=== PATIENT | male | born 1980 | race Caucasian/White ===

== ENCOUNTER 2021-06-27 07:47 | Inpatient (IN) | payer OTHER ==
[2021-06-23 13:56] LABS: Albumin 4.1 g/dL (3.4-5.0); Bilirubin Total 0.7 mg/dL (0.2-1.0); Potassium 4.1 mmol/L (3.5-5.1); Protein, Total 8.2 g/dL (6.4-8.2); Thyroid Stimulating Hormone 3.01 uIU/mL (0.360-3.740)
--- NOTE | 2021-06-24 12:39 | EKG ---
Test Date: 2021-06-23 Test Time: 12:15:26 Emt/Paramedic: LAURA MEASUREMENT RESULTS: Intervals: Rate: 80 HI: 152 QRSD: 84 QT: 370 QTc: 426 [place]: P: 60 HI: 152 QRS: 84 T: 31 INTERPRETIVE STATEMENTS: Normal sinus rhythm Normal ECG No previous ECG available for comparison Electronically Signed On 06-24-21 12:37:41 CDT by Andrei León
[2021-06-27] MEDS ORDERED: Ringers Lactate 1,000 ML IV ONE ×3 (08:13→13:57)
[2021-06-27] MEDS ORDERED: ONDANSETRON 4 MG/2 ML VIAL ONE ×2 (09:59→13:44)
[2021-06-27] MEDS ORDERED: propofoL 200 MG/20 ML VIAL IV ONE (09:59)
[2021-06-27] MEDS ORDERED: MIDAZOLAM HCL 2 MG/2 ML INJ ONE (09:59)
[2021-06-27] MEDS ORDERED: FENTANYL CITR 100 MCG/2 ML ONE ×2 (09:59→10:34)
[2021-06-27] MEDS ORDERED: LIDOCAINE 2% MPF 5 ML VIAL ONE (09:59)
[2021-06-27] MEDS ORDERED: GLYCOPYRROLATE 0.2 MG/ML SYR ONE (10:01)
[2021-06-27] MEDS ORDERED: NEOSTIGMINE 1 MG/ML -5 ML ONE (10:02)
[2021-06-27] MEDS ORDERED: ROCURONIUM 50 MG/5 ML VIAL IV ONE (10:02)
[2021-06-27] MEDS ORDERED: dexAMETHasone 10 MG/ML VIAL ONE (10:02)
[2021-06-27] MEDS ORDERED: LIDOCAINE 1% W/EPI 1:100,000 MDV 20 ML VIAL ONE (10:09)
[2021-06-27] MEDS ORDERED: CEFAZOLIN/SWI 2gm 2 GM/20 ML SYR ONE (10:13)
[2021-06-27] MEDS ORDERED: KETOROLAC 30 MG/ML INJ ONE (12:49)
--- NOTE | 2021-06-27 12:51 | P.BOP ---
Preoperative diagnosis: goiter, dysphagia, hyperthyroidism Postoperative diagnosis: same Primary procedure: total thyroidectomy Shop Welder: ALLEN PAPPAS Estimated blood loss: 50ml Specimen: total thyroid, suture L superior Findings: large hypervascular goiter Anesthesia: General Complications: None Drain(s): CIPRIANO drain Fluids & blood products: crystalloid 950ml Transferred to: Recovery Room Condition: Good
[2021-06-27] MEDS: HYDROMORPHONE HCL 1 MG/ML INJ ONE ×2 (13:27→13:41)
[2021-06-27] MEDS ORDERED: PROMETHAZINE INJ 25 MG/ML AMP ONE (13:46)
[2021-06-27] MEDS ORDERED: ONDANSETRON 4 MG/2 ML VIAL IV PRN (15:51)
[2021-06-27 17:23] VITALS: BMI 30.4
--- NOTE | 2021-06-27 17:27 | OP ---
Surgeon: Yareli Hawkins MD Hse Manager: Ms. Maia Berrios. Preoperative Diagnoses: Dysphagia, goiter, hyperthyroidism. Postoperative Diagnoses: Dysphagia, goiter, hyperthyroidism. Procedure: Total thyroidectomy. Estimated Blood Loss: 50 mL. Specimens: Total thyroid with left superior pole marked with suture. Complications: None. Drain: 10-Citizen [place] CIPRIANO to the neck. Surgical Findings: Significantly enlarged thyroid/goiter with superior pole extending to the level of the upper border of the thyroid cartilage and wrapping posteriorly around the larynx. Indication For Procedure: Mr. Hoover presented with swallowing and throat concerns with symptoms worse with neck flexion. The evaluation included thyroid function studies and ultrasound of the thyroid, which demonstrated a goiter and hyperthyroidism. The patient was placed on methimazole in order to control his hyperthyroidism. His TSH was improving, but was not normalized and his dose of methimazole was increased from 5 mg 3 times a day up to 10 mg 3 times a day. He subsequently had thyroid function test indicating his TSH was normal and he was not exhibiting any tachycardia or other symptoms of hyperthyroidism. Decision was made to proceed with total thyroidectomy with the patient understanding the need to have lifelong levothyroxine after surgery. Description Of Procedure In Detail: The patient was brought to the operating room. He was placed under general anesthesia via oral endotracheal tube. A shoulder roll was placed. The neck was extended. With palpation, the patient was noted to have a significantly enlarged thyroid gland. The planned incision site was injected with 4 mL of 1% lidocaine with epinephrine. The skin was prepped with Betadine and draped in a sterile fashion. A low collar incision was made through the skin, subcutaneous tissues, and the platysma muscle was identified and divided. Subplatysmal flaps were developed superiorly and inferiorly to provide surgical exposure. The strap muscles were identified in the midline and divided using Bovie electrocautery, revealing a large goitrous thyroid. The strap muscles were retracted laterally, while dissection was carried out along the surface of the thyroid. The right inferior pole and lateral border were easily mobilized moving in an inferior to superior direction. The superior pole extended high up to the level of the superior border of the thyroid cartilage and during dissection was noted to wrap around the larynx posteriorly. Blunt dissection with a peanut sponge and LigaSure was used to divide soft tissue attachments and small vessels. A [place] clamp was used to grasp the superior pole and retracted inferiorly and medially to aid in dissection. Once the superior pole was freed up, dissection was carried out around the lateral and inferior aspect. There was a nodularity to the inferior pole with some irregular nodules extending on the deep inferior aspect of the thyroid and these were carefully dissected. Attention was taken in the midportion of the thyroid where some soft tissue suspicious for parathyroid gland was carefully peeled off the gland and left in situ allowing better elevation of the gland medially. In the area of Molina ligament near the attachment and insertion point rather of the recurrent laryngeal nerve, great care was taken and carefully isolating small vessels, ligating them with the ligature and carefully dissecting with the goal of reducing risk of damage to the recurrent laryngeal nerve. Once dissection was carried out in this manner, the decision was made to leave the thyroid with its tracheal attachments and perform dissection along the left side. The surgical bed was packed with several Ray-Elena in order to provide hemostasis along some bleeding areas of the thyroid gland itself. Similar dissection was carried out on the left gland again with the gland extending very high superiorly along the lateral aspect of the thyroid cartilage and diving more deeply along the posterior aspect. Care was taken during retraction and dissection to avoid damage to surrounding structures. Due to the size of the goiter and difficulty in accessing the deep aspect of the thyroid gland, decision was made to divide the gland at the isthmus in order to improve visualization along the tracheoesophageal groove. The soft tissue attachments in front of the cricoid cartilage were carefully dissected from the isthmus and the LigaSure was used to divide the isthmus along its length. The left thyroid was then elevated off the surface of the trachea and careful dissection was carried out down toward the tracheoesophageal groove. Taking careful note to avoid and watch for the recurrent laryngeal nerve. The final dissection in the area of Molina ligament was taken carefully to avoid damage or excessive stretching to the left recurrent laryngeal nerve until all final tissue attachments were divided and the left lobe was completely removed and marked with a suture at the superior most aspect for orientation. An area of bleeding near the insertion of the recurrent laryngeal nerve was noted and a Ray-Elena gauze packing was applied to this area in order to apply gentle pressure and aid in hemostasis while minimizing risk of collateral damage to the nerve structure. Attention was then turned back to the right lobe. The right lobe was elevated in a medial to lateral dissection along the anterior tracheal wall toward the esophageal groove. The area around Molina ligament and near the insertion point of the recurrent laryngeal nerve was again carefully and judiciously dissected to avoid damage to the nerve until final tissue attachments were removed and the gland was inspected. There were no gross parathyroid glands noted on the surface of the thyroid and the specimen was sent to Pathology for permanent section only. The surgical bed was then cleared of all visible packing and filled with sterile saline. After copious irrigation, the surgical bed was filled with saline and a Valsalva was performed. There was no evidence of damage to the trachea as evidenced by absence of air bubbles, and there was no significant bleeding noted. The surgical bed was then evacuated of saline and reinspected, but no evidence of active bleeding were noted. The surgical sponge count including Ray-Elena, lap pads, and peanut sponges were all confirmed correct. A 10-[place]izen [place] round drain was placed through the skin of the left neck and draped into the thyroid bed. A single Vicryl suture was placed across the strap muscles in order to reapproximate over the trachea. The platysmal layer was closed in a deep interrupted fashion using Vicryl sutures and the skin was closed in a subcuticular fashion using 4-0 Monocryl suture. Mastisol and Steri-Strips were applied to the incision. The CIPRIANO drain was attached to the bulb and a negative pressure applied. A small amount of blood was evacuated into the bowl, but there was no evidence of active hematoma or significant bleeding. The neck remained flat and the patient was returned to care of Anesthesia for awakening, extubation in the operating room, which proceeded without difficulty. Complications: None. Disposition: The patient will be held in day surgery until the results of his PTH return. If the PTH is normal, the patient will likely be returned home barring any other immediate postoperative concerns. If the PTH is low, careful discussion will be made with the patient regarding further management. PREETI/VICENTE Voice ID: [id number] Report ID: [id number] RYAN
--- NOTE | 2021-06-27 20:03 | PN ---
Interim History: The patient underwent total thyroidectomy with surgery concluding around 1 p.m. Hi s pain is controlled. He has not had any significant postoperative nausea or vomiting. He denies an y paresthesias around the mouth or in the fingertips. Physical Examination: The patient is in no acute distress. He is alert and oriented. His voice is hoarse and breathy. Hi s neck is soft and flat with expected degree of tenderness. His CIPRIANO drain contains a moderate amount of bloody fluid. His [place] sign is negative. Laboratory Data: Postoperative PTH less than 6, undetectable. Assessment: 1.Status post total thyroidectomy, stable. 2.Postsurgical hypothyroidism. Plan: The patient will be placed in observation overnight with repeat laboratory studies to include daily basic metabolic profile, calcium, magnesium, phosphorus, albumin, PTH. If the patient develops hypocalcemia, we will manage that as indicated. If his PTH is detectable and the patient is free fr om signs or symptoms of hypocalcemia in the morning, we will plan for discharge. If his PTH remains undetectable or if he is developing findings of hypocalcemia, he may require transition to inpatient status for further medical management. I discussed the laboratory findings and treatment recommendat ions including overnight stay, with the patient and his friend. The patient is agreeable to the plan of care. PREETI/VICENTE Voice ID: [id number] Report ID: [id number]
[2021-06-27] MEDS ORDERED: CEPACOL LOZENGES PO PRN (20:37)
[2021-06-27 21:36] LABS: Vitamin D 1,25-Dihydroxy Total 58 pg/mL (18-72); Vitamin D,1,25-OH2, D2 <8 pg/mL
[2021-06-27] MEDS: ACETAMINOPHEN 500 MG TAB PO PRN (22:06)
[2021-06-27] MEDS: CALCIUM CARBONATE CHEW 500MG TAB PO SCH (23:31)
[2021-06-28] MEDS: HYDROCODONE/APAP 7.5/325 MG TAB PO PRN ×2 (06:02→12:50)
[2021-06-28] MEDS: LEVOTHYROXINE SOD 0.075 MG TAB PO SCH (06:02)
[2021-06-28 06:15] LABS: Albumin 3.1 g/dL (3.4-5.0); Phosphorus 4.3 mg/dL (2.5-4.9); Potassium 3.8 mmol/L (3.5-5.1)
[2021-06-28] MEDS: CALCIUM CARBONATE CHEW 500MG TAB PO SCH ×3 (08:59→23:44)
--- NOTE | 2021-06-28 12:36 | PN ---
Interim History: This is a postop day 1 from a total thyroidectomy with patient placed under observation for postoperative hypoparathyroidism. The patient had some complaints of some subjective breathlessness and shortness of breath last night. He also complained of significant sore and scratchy throat. His EKG, chest x-ray were unremarkable. He was treated with Cepacol lozenges, which significantly improved his throat symptoms. He denies any symptoms of hypocalcemia this morning. He is tolerating liquids without difficulty. He continues to have significant breathy voice and the expected degree of pain. He received 1 dose of hydrocodone early this morning. Physical Examination: Vital signs are stable. The patient is in no acute distress. His voice is significant breathy and weak with decreased phonatory time. His neck is flat with expected degree of tenderness. His left neck CIPRIANO drain demonstrates a small amount of serosanguineous fluid. His Chvostek sign is negative. Drain output, 70 mL. Laboratory Studies: Calcium last night was decreased at 8.1. The patient was started on oral calcium with the first dose administered at approximately 10 p.m. This morning's laboratory studies indicate normal electrolyte, blood sugar, and kidney function. His albumin is low at 3.1. His calcium is mildly low at 8.4. His corrected calcium is 9.12. His PTH remains undetectable. Assessment: 1. Status post total thyroidectomy, currently on levothyroxine 150 for postsurgical hypothyroidism. Further management to be performed as an outpatient. We will continue his CIPRIANO drain today. If the patient is discharged later today, drain removal will be performed in the clinic on Wednesday morning. If the patient remains overnight, we will consider drain removal in the morning. 2. Hypoparathyroidism, persistent, asymptomatic. No calcitriol indicated at this time. 3. Mild hypocalcemia, currently on oral calcium 1 g every 8 hours. We will plan to recheck a calcium at 5 p.m. today. If his hypocalcemia is stable, we will plan to discharge the patient later today. If his hypocalcemia is worsening, we will keep the patient overnight, change him to inpatient status, and manage him as medically indicated from there. 4. General hospitalization issues: The patient is not currently on any medication for venous thromboembolism prophylaxis, but is encouraged to ambulate around the floor several times a day and advised regarding the risks and signs and symptoms of deep venous thrombosis. Due to recent surgery and risk of neck hematoma, I do not recommend or prescribe pharmacologic deep venous thrombosis prophylaxis. We will monitor the patient's bowel function in regard to his recent narcotics use for acute surgical pain. From a dietary standpoint, his diet is ad gilda. PREETI/VICENTE Voice ID: [id number] Report ID: [id number] [email or web address]
--- NOTE | 2021-06-28 18:42 | P.PN ---
Date of Service: 06/28/21 PM Calcium is 7.4 but corrected calcium is 8.2 - will continue Calcium Carbonate 1gm PO q8H and check labs in the morning. Due to progressive hypocalciemia, patient will need to stay overnight and change to inpatient status.
--- NOTE | 2021-06-28 22:29 | RAD REPORT ---
EXAM DESCRIPTION: RAD - Chest Single View - 06/28/2021 1:17 am CLINICAL HISTORY: 41 years Male, dyspnea COMPARISON: None. FINDINGS: Drain positioned over the lower neck noted. There is a small amount of opacity in both lung bases. No pneumothorax. No significant pleural effusi on. Cardiomediastinal silhouette is unremarkable. Osseous structures are unremarkable. IMPRESSION: Small amount of opacity in both lung bases which may represent atelectasis or infiltrate s. Electronically signed by: Gerber Lee MD 06/28/2021 2:25 AM CDT Due to temporary technical issues with the PACS/Fluency reporting system, reports are being signed by the in house radiologists without review as a courtesy to insure prompt reporting. The interpreting radiologist is fully responsible for the content of the report.
[2021-06-29] MEDS: ACETAMINOPHEN 500 MG TAB PO PRN (04:24)
[2021-06-29 05:27] VITALS: BP 133/79; TEMP 97.4
[2021-06-29] MEDS: LEVOTHYROXINE SOD 0.075 MG TAB PO SCH (05:30)
[2021-06-29 06:38] LABS: Albumin 3.1 g/dL (3.4-5.0); Magnesium 1.8 mg/dL (1.8-2.4); Potassium 3.9 mmol/L (3.5-5.1)
[2021-06-29 08:32] VITALS: O2SAT 97
[2021-06-29] MEDS: CALCIUM CARBONATE CHEW 500MG TAB PO SCH (08:32)
--- NOTE | 2021-06-29 09:50 | DS ---
Admission Diagnoses: Status post total thyroidectomy for dysphagia, goiter, hyperthyroidism with new onset hypoparathyroidism following surgery. Discharge Diagnoses: Status post total thyroidectomy for dysphagia, goiter, hyperthyroidism with new onset hypoparathyroidism following surgery plus vocal fold weakness, dysphonia, hypocalcemia. Hospital Course: The patient was admitted following his thyroidectomy due to immediate postoperative undetectable parathyroid hormone levels. He was monitored with serial laboratory studies and develo ped hypocalcemia, which progressed over the initial 24 hours with a martha serum calcium of 7.4 with a corrected calcium of 8.2. This was treated with oral calcium carbonate 1 g every 8 hours. On the orning of discharge, the hypocalcemia was stable and the patient was highly motivated to be discharge d back with home medication regimen. Admission Medication: Methimazole. Discharge Medications: Levothyroxine, calcium carbonate 1 g by mouth q.8 hours, levothyroxine 150 mc g daily, Tylenol and ibuprofen as needed, tramadol 50 mg every 4 hours by mouth as needed for pain. Drains: None. Discharge Instructions: The patient is instructed regarding the signs and symptoms of hypocalcemia a nd should contact Dr. Hawkins if he has any progression of these findings or develops symptoms of hyp ocalcemia, not improved with additional dose of oral calcium. Followup: The patient has a scheduled followup on June [address] Hawkins's office and i s instructed to keep that appointment. Discharge Activity: Lifting restrictions up to 10 pounds for 1 week, can otherwise resume ADL includ ing showering, but should avoid submersion of the neck. The patient can resume diet as tolerated, bu t is instructed on using thickener for thin liquids due to his symptoms of aspiration and vocal cord we akness. PREETI/MODL Voice ID: [id number] Report ID: [id number]
--- NOTE | 2021-06-29 09:50 | PN ---
Date of Progress Note: 06/29/2021 Interim History: This is postop day 2 from total thyroid with hypoparathyroidism and hypocalcemia. The patient complains of expected degree of tenderness and pain, but it is controlled with current pa in management strategies. Upon questioning, the patient does note symptoms of choking and aspiration with thin liquids, though food goes down without difficulty. He denies any active symptoms of hypoc alcemia. Physical Examination: This patient has been afebrile. His pulse is in the low to mid 80s over the last 24 hours. Respirat ory rate is stable. Blood pressure overall is stable with systolics predominantly in the 30s and jerica stolics in the 70s. His oxygen saturation has been normal. His pain level ranges from 0 to 6. The patient is in no acute distress. No stridor. His voice is quite breathy and weak, but stable. His neck is flat with expected degree of tenderness. His CIPRIANO drain has had 25 mL of drainage over the las t 24 hours and is removed today without difficulty. Mild serous drainage from the drain site is note d after removal. The patient's Chvostek shows very mild twitching with palpation and tapping around the facial nerve. These findings were demonstrated to the patient for further monitoring at home. Laboratory Studies: The patient's electrolytes are normal except his calcium which is 7.4 and stable compared to 12 hours earlier. His albumin is stable at 3.1, putting his corrected calcium at 8.2. His intact PTH this morning is still pending. Assessment: 1.Status post total thyroidectomy with postsurgical hypothyroidism, currently managed with 150 mcg p .o. levothyroxine daily. A prescription already awaits the patient to continue this medication at [facility]. We will plan for a TSH in about 4 weeks to monitor his dose of levothyroxine. 2.Hypoparathyroidism. Labs are pending. As of this morning, the patient has not required addition of calcitriol, but will be monitored on an outpatient basis. 3.Hypocalcemia. The patient's hypocalcemia appears to be stabilizing with mild signs on physical ex am, but no active symptoms. We discussed the importance of outpatient monitoring. The patient is in structed to set an alarm on his phone to remind him to take calcium every 8 hours. If he develops pa resthesias around the mouth or fingertips, he should take an extra dose of calcium and contact Dr. Davis solomon if the symptoms have not resolved within 1 hour. Additionally, if the patient has any chest pa in, overall sudden weakness or significant muscle cramping, he should call Dr. Hawkins's office as so on as possible. 4.Dysphagia with symptoms of aspiration. The patient likely has unilateral vocal cord weakness foll owing his thyroidectomy and is instructed to obtain thickener from the pharmacy and thicken all of hi s thin liquids to improve swallowing. He is also instructed in the use of head turn and chin tuck in order to reduce risk of aspiration. His vocal cords will be examined on an outpatient basis in the clinic tomorrow. Overall with the stabilization of the calcium, we will plan to discharge the patient this morning. Eloise morris has an existing appointment with Dr. Hawkins on Wednesday and should keep this appointment for reassessment of his hypocalcemia signs. He is okay to shower, but should avoid submersion of the ne ck in a bath or swimming manner. He can resume ADLs with lifting restrictions. PREETI/VICENTE Voice ID: [id number] Report ID: [id number]
== END 2021-06-29 09:35 | disposition home or self-care (01) | DRG 627 ==
LOC: OR 07:47 → OBSVTOIN 17:14 → 2ND 17:14 → INTOOBSV 17:14 → OBSVTOIN 06-28 18:42
PROVIDERS: ADMIT Otolaryngology; ATTEND Otolaryngology
PROC: 0GTK0ZZ Resection of Thyroid Gland, Open Approach (ICD-10-PCS; principal; 2021-06-27 09:15)
DX: E83.51 Hypocalcemia (principal); E89.2 Postprocedural hypoparathyroidism; R13.10 Dysphagia, unspecified; E05.00 Thyrotoxicosis with diffuse goiter without thyrotoxic crisis or storm; R49.0 Dysphonia; J38.00 Paralysis of vocal cords and larynx, unspecified
CPT/HCPCS: 36415; 71045; 80048; 80053; 82040; 82310; 82652; 83735; 83970; 84100; 84443; 88307; 93005; G0378; G0379; J0690; J1100; J1170; J2250; J2405; J2550; J2704; J2710; J3010; J7120; U0002

== ENCOUNTER 2022-01-02 08:30 | Day surgery (SDC) | payer OTHER ==
--- NOTE | 2021-12-31 13:06 | EKG ---
Test Date: 2021-12-30 Test Time: 15:03:43 Office Chair Assembler: LAURA MEASUREMENT RESULTS: Intervals: Rate: 83 VT: 162 QRSD: 84 QT: 370 QTc: 434 [place]: P: 52 VT: 162 QRS: 88 T: 31 INTERPRETIVE STATEMENTS: Normal sinus rhythm Normal ECG Compared to ECG 06/28/2021 00:27:55 Sinus arrhythmia no longer present Electronically Signed On 12-31-21 13:03:12 FISH HATCHERY SUPERINTENDENT by Andrei León
[~2022-01-02 08:30] MED LIST: SCOPOLAMINE HYDROBROMIDE PATCH TD ONE
[2022-01-02] MEDS ORDERED: Ringers Lactate 1,000 ML IV ONE (08:35)
[2022-01-02] MEDS ORDERED: SCOPOLAMINE HYDROBROMIDE PATCH TD ONE (09:13)
[2022-01-02] MEDS ORDERED: propofoL 200 MG/20 ML VIAL IV ONE (10:11)
[2022-01-02] MEDS ORDERED: MIDAZOLAM HCL 2 MG/2 ML INJ ONE (10:11)
[2022-01-02] MEDS ORDERED: FENTANYL CITR 100 MCG/2 ML ONE (10:12)
[2022-01-02] MEDS ORDERED: dexAMETHasone 10 MG/ML VIAL ONE (10:12)
[2022-01-02] MEDS ORDERED: KETOROLAC 30 MG/ML INJ ONE (10:13)
[2022-01-02] MEDS ORDERED: ROCURONIUM 50 MG/5 ML VIAL IV ONE ×2 (10:13→10:16)
[2022-01-02] MEDS ORDERED: LIDOCAINE 2% MPF 5 ML VIAL ONE (10:13)
[2022-01-02] MEDS ORDERED: ONDANSETRON 4 MG/2 ML VIAL ONE (10:15)
[2022-01-02] MEDS ORDERED: LIDOCAINE 1% W/EPI 1:100,000 MDV 20 ML VIAL ONE (10:18)
[2022-01-02] MEDS ORDERED: OXYMETAZOLINE HCL 0.05% 15ML NAS ONE (10:18)
[2022-01-02] MEDS ORDERED: EPINEPHRINE/PF 1 MG/ML AMP ONE (10:18)
[2022-01-02] MEDS ORDERED: SUGAMMADEX SODIUM 200 MG/2 ML VIAL IV ONE (10:24)
--- NOTE | 2022-01-02 11:27 | P.BOP ---
Preoperative diagnosis: L TVC paresis, dysphonia Postoperative diagnosis: same Primary procedure: DL with left VF injection with 0.45ml of Prolaryn Plus Tool Room Supervisor: NONE,NONE Estimated blood loss: Nil Specimen: NONE Findings: L VC lateralized Anesthesia: General Complications: None Implants: Prolaryn Plus, 0.45ml to left TVF Fluids & blood products: Crystallod Transferred to: Recovery Room Condition: Good
[2022-01-02] MEDS ORDERED: EPINEPHRINE INH 0.5 ML VIAL IH ONE (11:28)
[2022-01-02 12:07] VITALS: BP 153/82; TEMP 97.4; O2SAT 100
--- NOTE | 2022-01-02 12:58 | P.OP ---
Dynamic Etching Processor: NONE,NONE Preoperative diagnosis: Left vocal fold paralysis with dysphonia Postoperative diagnosis: same Primary procedure: Direct Laryngoscopy/telescope with vocal fold injection Anesthesia: General Estimated blood loss: nil Specimen: none Findings: L VC lateralized Operative Technique: The patient was brought to the operating room. He was placed under general anesthesia and intubated with a 6.5 endotracheal tube. A shoulder roll was placed and the neck was extended. A tooth guard was placed on the upper dentition. A Lightwave Power rigid laryngoscope with 15 degree telescope was used to perform a direct laryngoscopy. The laryngoscope was placed in suspension and coordination with anesthesia to hold ventilation was arranged. The patient was preoxygenated with 100% oxygen. After cessation of mechanical ventilation, the balloon of the endotracheal tube was deflated and the endotracheal tube removed and set aside. The Prolaryn Plus with extended length needle was prepared. Under direct visualization via the telescope, the tip of the needle was inserted in the lateral aspect of the left vocal fold within the vallecula. Injection was slowly performed with a total injection of 0.45 mL into the left vocal fold. Secretions were suctioned. The endotracheal tube was replaced. The laryngoscope was then released from suspension and the endotracheal tube was grasped using a large cup forcep. The laryngoscope was then removed and a push pull fashion leaving the endotracheal tube in situ. The anesthesia circuit was connected and ventilation was resumed. The tooth guard was removed. The patient was then returned to care of anesthesia for awakening extubation in the operating room which proceeded without difficulty. The patient was assessed in the recovery room during later portions of anesthesia emergence. The patient had moderate coughing and stridor. He was administered a nebulizer of racemic epinephrine and had previously received dexamethasone IV from anesthesia during the procedure. He was administered humidified oxygen via facemask. Over the next 30 minutes, as the patient became more alert and awake, his cough and stridor significantly improved. He was deemed stable to move to the day surgery unit with planned evaluation by Dr. Hawkins prior to discharge. Complications: None Implants: Prolaryn Plus, 0.45ml to left TVF Fluids & blood products: Crystalloid, see anesthesia records Transferred to: Recovery Room Condition: Good
== END 2022-01-02 13:10 | disposition home or self-care (01) ==
LOC: OR 08:30
PROVIDERS: ATTEND Otolaryngology
PROC: 3E0F8GC Introduction of Other Therapeutic Substance into Respiratory Tract, Via Natural or Artificial Opening Endoscopic (ICD-10-PCS; principal; 2022-01-02 10:30)
DX: R49.0 Dysphonia (principal); J38.01 Paralysis of vocal cords and larynx, unilateral; J06.9 Acute upper respiratory infection, unspecified; Z20.822 Contact with and (suspected) exposure to COVID-19
CPT/HCPCS: 93005; 31571; U0003; J2704; J2250; J3010; J1100; J7120; J2405; J0171

== ENCOUNTER 2023-01-06 14:33 | Emergency (ER) | payer OTHER ==
[2023-01-06] MEDS ORDERED: dexAMETHasone 10 MG/ML VIAL ONE (14:57)
[2023-01-06 15:49] LABS: SARS-COV-2 RT PCR NEGATIVE (NEGATIVE)
[2023-01-06] MEDS ORDERED: HYDROCODONE/CHLORPHEN 5 ML/OSYR ONE (16:34)
--- NOTE | 2023-01-06 16:56 | EDPHYS ---
Physician Documentation [facility] – [place], [place] Name: Jamar Hoover Age: 42 yrs Sex: Male : 1980 Arrival Date: 01/06/2023 Time: 14:33 Bed 12 Private MD: ED Physician Waldo Blankenship HPI: 01/06 14:52 This 42 yrs old Male presents to ER via Ambulatory with complaints of Pharyngitis, pm1 Breathing Difficulty. 14:52 The patient presents with sore throat, breathing difficulty. Onset: The pm1 symptoms/episode began/occurred yesterday. Severity of symptoms: in the emergency department the symptoms are actually worse. Modifying factors: the symptoms are aggravated by coughing. Associated signs and symptoms: Pertinent positives: cough, Pertinent negatives fever. The patient has not recently seen a physician. 43-year-old male presents to the ER with complaints sore throat onset yesterday with coughing. Patient was driving today and had a coughing episode where he felt that his throat was closing up and he had difficulty breathing. 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 Historical: - Allergies: 14:45 Amoxicillin (Anaphylaxis); aa5 - PMHx: 14:46 thyroid; aa5 - PSHx: 14:45 Thyroidectomy; Paralyzed vocal cord; aa5 - Immunization history:: Adult Immunizations unknown. - Social history:: Smoking status: Patient denies any tobacco usage or history of. ROS: 14:52 Constitutional: Negative for fever, chills, and weight loss. pm1 14:52 MS/Extremity: Negative for injury and deformity, Skin: Negative for injury, rash, and discoloration, Neuro: Negative for headache, weakness, numbness, tingling, and seizure. 14:52 ENT: Positive for sinus congestion, sore throat. 14:52 Neck: Positive for throat swelling sensation. 14:52 Respiratory: Positive for cough, Difficulty breathing with coughing episodes. 14:52 All other systems are negative. Exam: 14:52 Constitutional: This is a well developed, well nourished patient who is awake, alert, pm1 and in no acute distress. Head/Face: Normocephalic, atraumatic. 14:52 Skin: Warm, dry with normal turgor. Normal color with no rashes, no lesions, and no evidence of cellulitis. MS/ Extremity: Pulses equal, no cyanosis. Neurovascular intact. Full, normal range of motion. 14:52 ENT: Posterior pharynx: Tonsils: are normal in appearance, swelling, is not appreciated, erythema, that is moderate, peritonsillar mass, is not appreciated. 14:52 Neck: Exam negative for acute changes. 14:52 Cardiovascular: Exam negative for acute changes, Rate: normal, Rhythm: regular, Pulses: no pulse deficits are appreciated. 14:52 Respiratory: Exam negative for acute changes, respiratory distress, shortness of breath, Breath sounds: stridor, is not appreciated. 14:52 Neuro: Exam negative for acute changes, Orientation: is normal, Mentation: is normal, Motor: is normal, moves all fours. Vital Signs: 14:43 BP 168 / 94; Pulse 79; Resp 18 S; Temp 98.1(TE); Pulse Ox 100% on R/A; Weight 90.72 kg aa5 (R); Height 5 ft. 8 in. (172.72 cm) (R); 14:43 Body Mass Index 30.41 (90.72 kg, 172.72 cm) aa5 MDM: 14:46 Patient medically screened. pm1 15:26 Differential diagnosis: bronchitis, pharyngitis, upper respiratory infection, covid, pm1 flu, strep. 16:49 Data reviewed: vital signs. pm1 16:55 Counseling: I had a detailed discussion with the patient and/or guardian regarding: the pm1 historical points, exam findings, and any diagnostic results supporting the discharge/admit diagnosis, lab results, the need for outpatient follow up, to return to the emergency department if symptoms worsen or persist or if there are any questions or concerns that arise at home. 01/06 14:52 Order name: Strep; Complete Time: 15:26 pm1 01/06 14:52 Order name: COVID-19/FLU A+B; Complete Time: 16:19 pm1 01/06 15:22 Order name: Throat Culture EDMS Administered Medications: 15:03 Drug: Decadron (dexamethasone) 10 mg Route: IM; Site: right deltoid; ap3 16:32 Follow up: Response: No adverse reaction ap3 16:32 Drug: Tussionex Pennkinetic ER (chlorpheniramine-hydrocodone) Suspension 5 ml Route: PO;ap3 17:11 Follow up: Response: No adverse reaction; Pain is decreased ap3 17:11 Drug: Ketorolac 60 mg Route: IM; Site: right deltoid; ap3 17:54 Follow up: Response: No adverse reaction; Pain is decreased ap3 Disposition: 18:55 Co-signature as Attending Physician, Waldo DURAN was immediately available on-site ms3 in the Emergency Department for consultation in the care of the patient. Disposition Summary: 01/06/23 16:56 Discharge Ordered Location: Home pm1 Problem: new pm1 Symptoms: have improved pm1 Condition: Stable pm1 Diagnosis - Acute pharyngitis, unspecified pm1 Followup: pm1 - With: Emergency Department - When: As needed - Reason: Worsening of condition Followup: pm1 - With: Private Physician - When: 2 - 3 days - Reason: Recheck today's complaints, Continuance of care, Re-evaluation by your physician Discharge Instructions: - Discharge Summary Sheet pm1 - Pharyngitis pm1 Forms: - Medication Reconciliation Form pm1 - Thank You Letter pm1 - Antibiotic Education pm1 - Prescription Opioid Use pm1 Prescriptions: - Guaifenesin AC 10-100 mg/5 mL Oral Liquid - take 10 milliliters by ORAL route every 4 hours As needed; 240 milliliter; pm1 Refills: 0, Product Selection Permitted Signatures: Dispatcher [employer] Lizzette Kohli RN RN aa5 Jan Schwartz, WELL DRILL OPERATOR WELL DRILL OPERATOR pm1 Evie Adkins RN RN ap3 Waldo Blankenship DO DO ms3 Corrections: (The following items were deleted from the chart) 14:47 14:45 PMHx: None; mariely [email or web address]
--- NOTE | 2023-01-06 16:56 | ER ---
Nurse's Notes [facility] Name: Jamar Hoover Age: 42 yrs Sex: Male : 1980 Arrival Date: 01/06/2023 Time: 14:33 Bed 12 Private MD: Diagnosis: Acute pharyngitis, unspecified Presentation: 01/06 14:43 Chief complaint: Patient states: "I was just at work and my throat got tight and I aa5 couldn't make a single sound so I came here". Pt c/o sore throat and SOB, reports he's been sick with a cold. Coronavirus screen: shortness of breath, sore throat. Ebola Screen: Patient denies travel to an Ebola-affected area in the 21 days before illness onset. Initial Sepsis Screen: Does the patient meet any 2 criteria? No. Patient's initial sepsis screen is negative. Does the patient have a suspected source of infection? No. Patient's initial sepsis screen is negative. Risk Assessment: Do you want to hurt yourself or someone else? Patient reports no desire to harm self or others. Onset of symptoms was December 2022. 14:43 Method Of Arrival: Ambulatory aa5 14:43 Acuity: LOVE 3 aa5 Triage Assessment: 16:10 Respiratory: Onset: The symptoms/episode began/occurred gradually, the patient has mild ap3 shortness of breath. Historical: - Allergies: 14:45 Amoxicillin (Anaphylaxis); aa5 - PMHx: 14:46 thyroid; aa5 - PSHx: 14:45 Thyroidectomy; Paralyzed vocal cord; aa5 - Immunization history:: Adult Immunizations unknown. - Social history:: Smoking status: Patient denies any tobacco usage or history of. Screenin:09 [facility] ED Fall Risk Assessment (Adult) History of falling in the last 3 months, ap3 including since admission No falls in past 3 months (0 pts). Abuse screen: Denies threats or abuse. Nutritional screening: No deficits noted. Tuberculosis screening: No symptoms or risk factors identified. Assessment: 16:09 General: Appears in no apparent distress. Behavior is calm, cooperative. Pain: Denies ap3 pain. Neuro: Level of Consciousness is awake, alert, obeys commands, Oriented to person, place, time, situation. Cardiovascular: Rhythm is regular. Respiratory: Airway is patent Respiratory effort is even, unlabored, Breath sounds are clear. Respiratory: Reports shortness of breath intermittently. Vital Signs: 14:43 BP 168 / 94; Pulse 79; Resp 18 S; Temp 98.1(TE); Pulse Ox 100% on R/A; Weight 90.72 kg aa5 (R); Height 5 ft. 8 in. (172.72 cm) (R); 14:43 Body Mass Index 30.41 (90.72 kg, 172.72 cm) aa5 ED Course: 14:33 Patient arrived in ED. as 14:43 Arm band placed on. aa5 14:45 Triage completed. aa5 14:46 Evie Adkins, KECIA is Primary Nurse. ap3 14:46 Jan Schwartz NP is PHCP. pm1 14:46 Waldo Blankenship DO is Attending Physician. pm1 15:03 COVID-19/FLU A+B Sent. ap3 15:03 Strep Sent. ap3 16:10 Patient has correct armband on for positive identification. Bed in low position. Call ap3 light in reach. Side rails up X 1. Pulse ox on. NIBP on. Door closed. Noise minimized. 17:05 No provider procedures requiring assistance completed. Patient did not have IV access ap3 during this emergency room visit. Administered Medications: 15:03 Drug: Decadron (dexamethasone) 10 mg Route: IM; Site: right deltoid; ap3 16:32 Follow up: Response: No adverse reaction ap3 16:32 Drug: Tussionex Pennkinetic ER (chlorpheniramine-hydrocodone) Suspension 5 ml Route: PO;ap3 17:11 Follow up: Response: No adverse reaction; Pain is decreased ap3 17:11 Drug: Ketorolac 60 mg Route: IM; Site: right deltoid; ap3 17:54 Follow up: Response: No adverse reaction; Pain is decreased ap3 Medication: 16:10 VIS not applicable for this client. ap3 Outcome: 16:56 Discharge ordered by . pm1 17:53 Discharged to home ambulatory. ap3 17:53 Condition: good 17:53 Discharge instructions given to patient, Instructed on discharge instructions, follow up and referral plans. medication usage, Demonstrated understanding of instructions, follow-up care, medications, Prescriptions given X 1. 17:53 Patient left the ED. ap3 Signatures: Audra Yates Audri RN RN aa5 Jan Schwartz, ROUSTABOUT HAND ROUSTABOUT HAND pm1 Evie Adkins RN RN ap3 Corrections: (The following items were deleted from the chart) 14:47 14:45 PMHx: None; aa5 aa5
[2023-01-06] MEDS ORDERED: KETOROLAC 30 MG/ML INJ ONE ×2 (17:10→17:11)
[2023-01-06 18:29] VITALS: BP 168/94; TEMP 98.1; O2SAT 100
== END 2023-01-06 17:53 | disposition home or self-care (01) ==
LOC: ER 14:33
DX: J02.9 Acute pharyngitis, unspecified (principal); R05.9 Cough, unspecified; Z20.822 Contact with and (suspected) exposure to COVID-19; Z88.1 Allergy status to other antibiotic agents
CPT/HCPCS: 87070; 87081; 0240U; J1100

== ENCOUNTER 2025-09-04 01:25 | Emergency (ER) | payer OTHER ==
[2025-09-04] MEDS ORDERED: FAMOTIDINE 20 MG/2 ML VIAL IV ONE (01:46)
[2025-09-04] MEDS ORDERED: NA CHLORIDE 0.9% 1,000 ML ONE (01:46)
[2025-09-04] MEDS ORDERED: METHYLPREDNISOLONE 125 MG INJ ONE (01:46)
[2025-09-04] MEDS ORDERED: DIPHENHYDRAMINE 50 MG/ML VIAL ONE (01:46)
--- NOTE | 2025-09-04 04:29 | EDPHYS ---
Physician Documentation [facility] Name: Jamar Hoover Age: 45 yrs Sex: Male : 1980 Arrival Date: 09/04/2025 Time: 01:25 Bed 6 Private MD: Carlton Fisher ED Physician Parth Campuzano HPI: 09/04 01:33 This 45 yrs old Male presents to ER via Unassigned with complaints of sp4 Allergic Reaction. 22:28 Patient presents with diffuse dermatitis secondary to poison oak associated with hives sp4 moderate to severe itching. Patient reports facial rash chest and abdominal rash bilateral extremity rash, redness itching and hives. Historical: - Allergies: 01:54 Amoxicillin (Anaphylaxis); ha1 - PMHx: 01:54 thyroid; ha1 - PSHx: 01:54 Paralyzed vocal cord; Thyroidectomy; ha1 - Immunization history:: Adult Immunizations not up to date. - Infectious Disease History:: Denies. - Social history:: Smoking status: Patient/guardian denies using tobacco, the patient reports quitting approximately 14 years ago. - Family history:: not pertinent. ROS: 22:28 Constitutional: Negative for fever, chills, and weight loss, positive for diffuse sp4 hives, diffuse allergic dermatitis, positive for itching redness about 22:28 All other systems are negative, Exam: 22:28 Constitutional: This is a well developed, well nourished patient who is awake, alert, sp4 and in no acute distress. Head/Face: Normocephalic, atraumatic. Eyes: Pupils equal round and reactive to light, extra-ocular motions intact. Lids and lashes normal. Conjunctiva and sclera are not injected. Cornea within normal limits. Periorbital areas with no swelling, redness, or edema. ENT: Nares patent. No nasal discharge, no septal abnormalities noted. Tympanic membranes are normal and external auditory canals are clear. Oropharynx with no redness, swelling, or masses, exudates, or evidence of obstruction, uvula midline. Mucous membranes moist. Neck: Trachea midline, no thyromegaly or masses palpated, and no cervical lymphadenopathy. Supple, full range of motion without nuchal rigidity, or vertebral point tenderness. Chest/axilla: Normal chest wall appearance and motion. Nontender with no deformity. No lesions are appreciated. Cardiovascular: Regular rate and rhythm with a normal S1 and S2. No gallops, murmurs, or rubs. No pulse deficits. Respiratory: Lungs have equal breath sounds bilaterally, clear to auscultation and percussion. No rales, rhonchi or wheezes noted. No increased work of breathing, no retractions or nasal flaring. Abdomen/GI: Soft, with normal bowel sounds. No distension or tympany. No guarding or rebound. No evidence of tenderness throughout. Back: No spinal tenderness. No costovertebral tenderness. Skin: Warm, dry with normal turgor. Normal color with we've multiple areas of contact dermatitis consistent with acute poison oak dermatitis associated diffuse hives to face chest and trunk MS/ Extremity: Pulses equal, no cyanosis. Neurovascular intact. Full, normal range of motion. Neuro: Awake and alert, GCS 15, oriented to person, place, time, and situation. Cranial nerves II-XII grossly intact. Motor strength 5/5 in all extremities. Sensory grossly intact. Psych: Awake, alert, with orientation to person, place and time. Behavior, mood, and affect are within normal limits Vital Signs: 01:39 BP 136 / 92; Pulse 76; Resp 19 S; Temp 97.9(O); Pulse Ox 98% on R/A; Weight 90.72 kg; ha1 Height 5 ft. 8 in. ; Pain 0/10; 02:36 BP 152 / 100; Pulse 80; Resp 19; Pulse Ox 99% on R/A; kd3 03:30 BP 139 / 83; Pulse 77; Resp 18 S; Pulse Ox 95% on R/A; ha1 04:15 BP 143 / 86; Pulse 76; Resp 18 S; Pulse Ox 95% on R/A; ha1 01:39 Body Mass Index 30.41 (90.72 kg, 172.72 cm) ha1 01:39 Pain Scale: Adult ha1 [place]inton Coma Score: 22:28 Eye Response: spontaneous(4). Motor Response: obeys commands(6). Verbal Response: sp4 oriented(5). Total: 15. MDM: 02:39 Medical Screening Exam initiated sp4 22:28 Differential diagnosis: angioedema, Arrhythmias bronchospasm, Hereditary Angioedema sp4 urticaria. Data reviewed: vital signs, nurses notes, old medical records. Consideration of Admission/Observation Escalation of care including admission/observation considered. ED course: Patient improved significantly and now is stable for discharge home. 09/04 01:46 Order name: IV Saline Lock; Complete Time: :57 sp4 09/04 01:46 Order name: Labs collected and sent; Complete Time: :57 sp4 Administered Medications: 01:59 Drug: Famotidine IVP 40 mg IVP once; dilute with 10 mL 0.9% NaCl; give over 2 minutes vc1 Route: IVP; Site: right antecubital; 02:15 Follow up: Response: No adverse reaction; Marked relief of symptoms ha1 01:59 Drug: NS 0.9% IV 1000 ml IV at 1 bolus Per protocol; to be given as a bolus over 60 vc1 minutes Route: IV; Rate: 1 bolus; Site: right antecubital; 04:22 Follow up: Response: No adverse reaction; IV Status: Completed infusion ha1 02:00 Drug: diphenhydrAMINE IVP 50 mg IVP once Route: IVP; Site: right antecubital; vc1 02:45 Follow up: Response: No adverse reaction; Marked relief of symptoms ha1 02:00 Drug: MethylPrednisoLONE IVP 125 mg IVP once Route: IVP; Site: right antecubital; vc1 02:45 Follow up: Response: No adverse reaction; Marked relief of symptoms ha1 Disposition: 22:28 Chart complete. sp4 Disposition Summary: 09/04/25 04:29 Discharge Ordered Notes: Location: Home sp4 Problem: new sp4 Symptoms: have improved sp4 Condition: Stable sp4 Diagnosis - Acute poison oak dermatitis, acute allergic hives sp4 Followup: sp4 - With: Carlton Fisher MD - When: 7 - 10 days - Reason: Recheck today's complaints Discharge Instructions: - Discharge Summary Sheet sp4 - Contact Dermatitis, [id number] sp4 Forms: - Patient Portal Instructions sp4 Prescriptions: - diphenhydramine HCl 25 mg Oral capsule - take 2 capsule ORAL route 3 times per day for 10 days as needed for itching; 50 sp4 capsule; Refills: 0, Product Selection Permitted - famotidine 20 mg Oral tablet - take 2 tablet ORAL route daily for 10 days; 20 tablet; Refills: 0, Product sp4 Selection Permitted - Prednisone 20 mg Oral tablet - take 2 tablets ORAL route once daily for 10 days; 20 tablet; Refills: 0, sp4 Product Selection Permitted Signatures: Vivian Simmons, RN RN vc1 Lilian An RN RN ha1 Parth Campuzano MD MD sp4
--- NOTE | 2025-09-04 04:29 | ER ---
Nurse's Notes [facility] Name: Jamar Hoover Age: 45 yrs Sex: Male : 1980 Arrival Date: 09/04/2025 Time: 01:25 Bed 6 Private MD: Carlton Fisher Diagnosis: Acute poison oak dermatitis, acute allergic hives Presentation: 09/04 01:39 Chief complaint: Patient states: POISON LEEROY RASH NOT IMPROVING, FACIAL SWELLING. ha1 01:39 Coronavirus screen: Client denies travel out of the [place] in the last 14 days. Ebola ha1 Screen: No symptoms or risks identified at this time. Onset: The symptoms/episode began/occurred 1 week(s) ago. Anaphylaxis evaluation, no signs or symptoms of anaphylaxis were noted. Initial Sepsis Screen: Does the patient meet any 2 criteria? No. Patient's initial sepsis screen is negative. Does the patient have a suspected source of infection? No. Patient's initial sepsis screen is negative. Risk Assessment: Do you want to hurt yourself or someone else? Patient reports no desire to harm self or others. Onset of symptoms was September 04, 2025. 01:39 Method Of Arrival: Ambulatory ha1 01:39 Acuity: LOVE 3 ha1 Triage Assessment: 01:54 General: Appears uncomfortable, Behavior is calm, cooperative. Pain: Denies pain. ha1 Neuro: Level of Consciousness is awake, alert, obeys commands, Oriented to person, place, time, situation. Cardiovascular: Capillary refill < 3 seconds. Respiratory: Airway is patent Respiratory effort is even, unlabored, Respiratory pattern is regular, symmetrical. GI: No signs and/or symptoms were reported involving the gastrointestinal system. Abdomen is non-distended, obese. : No signs and/or symptoms were reported regarding the genitourinary system. Derm: Skin is normal, Rash noted that is itchy, red, raised, on face, right arm, left arm, right leg and left leg. Musculoskeletal: Circulation, motion, and sensation intact. Range of motion: intact in all extremities. Historical: - Allergies: 01:54 Amoxicillin (Anaphylaxis); ha1 - PMHx: 01:54 thyroid; ha1 - PSHx: 01:54 Paralyzed vocal cord; Thyroidectomy; ha1 - Immunization history:: Adult Immunizations not up to date. - Infectious Disease History:: Denies. - Social history:: Smoking status: Patient/guardian denies using tobacco, the patient reports quitting approximately 14 years ago. - Family history:: not pertinent. Screenin:56 [facility] ED Fall Risk Assessment (Adult) History of falling in the last 3 months, ha1 including since admission No falls in past 3 months (0 pts) Confusion or Disorientation No (0 pts) Intoxicated or Sedated No (0 pts) Impaired Gait No (0 pts) Mobility Assist Device Used No (0 pt) Altered Elimination No (0 pt) Score/Fall Risk Level 0 - 2 = Low Risk Oriented to surroundings, Maintained a safe environment, Hourly rounding (assess needs \T\ fall precautionary measures) done. Abuse screen: Denies threats or abuse. Denies injuries from another. Nutritional screening: No deficits noted. Tuberculosis screening: No symptoms or risk factors identified. Assessment: 02:35 General: Appears uncomfortable, Behavior is calm, cooperative. Pain: Complains of pain kd3 in left leg and right leg and left arm and right arm and face. Neuro: Level of Consciousness is awake, alert, obeys commands, Oriented to person, place, time, situation. Cardiovascular: Capillary refill < 3 seconds Patient's skin is warm and dry. Respiratory: Airway is patent Trachea midline Respiratory effort is even, unlabored, Respiratory pattern is regular, symmetrical, Breath sounds are clear bilaterally. Derm: Rash noted that is itchy, red, raised, on left eye, chest, abdomen, pelvis, right arm, left arm, right leg and left leg. 03:30 Reassessment: Patient and/or family updated on plan of care and expected duration. Pain ha1 level reassessed. Patient is alert, oriented x 3, equal unlabored respirations, skin warm/dry/pink. Patient states feeling better. Patient states symptoms have improved. Vital Signs: 01:39 BP 136 / 92; Pulse 76; Resp 19 S; Temp 97.9(O); Pulse Ox 98% on R/A; Weight 90.72 kg; ha1 Height 5 ft. 8 in. ; Pain 0/10; 02:36 BP 152 / 100; Pulse 80; Resp 19; Pulse Ox 99% on R/A; kd3 03:30 BP 139 / 83; Pulse 77; Resp 18 S; Pulse Ox 95% on R/A; ha1 04:15 BP 143 / 86; Pulse 76; Resp 18 S; Pulse Ox 95% on R/A; ha1 01:39 Body Mass Index 30.41 (90.72 kg, 172.72 cm) ha1 01:39 Pain Scale: Adult ha1 Serge Coma Score: 22:28 Eye Response: spontaneous(4). Motor Response: obeys commands(6). Verbal Response: sp4 oriented(5). Total: 15. ED Course: 01:30 Patient arrived in ED. gm2 01:31 Carlton Fisher MD is Private Physician. gm2 01:33 Parth Campuzano MD is Attending Physician. sp4 01:39 Patient has correct armband on for positive identification. Placed in gown. Bed in low ha1 position. Call light in reach. Side rails up X 1. 01:39 Provided Education on: MEDICATION ADMINISTRATION. ha1 01:39 Arm band placed on right wrist. ha1 01:46 Lilian An RN is Primary Nurse. ha1 01:54 Triage completed. ha1 01:56 Inserted saline lock: 20 gauge in right antecubital area, using aseptic technique. ha1 Blood collected. Flushed with 10 mL NS. 04:28 Carlton Fisher MD is Referral Physician. sp4 04:34 No provider procedures requiring assistance completed. IV discontinued, intact, ha1 bleeding controlled, No redness/swelling at site. Pressure dressing applied. Administered Medications: 01:59 Drug: Famotidine IVP 40 mg IVP once; dilute with 10 mL 0.9% NaCl; give over 2 minutes vc1 Route: IVP; Site: right antecubital; 02:15 Follow up: Response: No adverse reaction; Marked relief of symptoms ha1 01:59 Drug: NS 0.9% IV 1000 ml IV at 1 bolus Per protocol; to be given as a bolus over 60 vc1 minutes Route: IV; Rate: 1 bolus; Site: right antecubital; 04:22 Follow up: Response: No adverse reaction; IV Status: Completed infusion ha1 02:00 Drug: diphenhydrAMINE IVP 50 mg IVP once Route: IVP; Site: right antecubital; vc1 02:45 Follow up: Response: No adverse reaction; Marked relief of symptoms ha1 02:00 Drug: MethylPrednisoLONE IVP 125 mg IVP once Route: IVP; Site: right antecubital; vc1 02:45 Follow up: Response: No adverse reaction; Marked relief of symptoms ha1 Medication: 01:57 VIS not applicable for this client. ha1 Outcome: 04:29 Discharge ordered by . karma 04:34 Discharged to home ambulatory, ha1 04:34 Condition: stable 04:34 Discharge instructions given to patient, Instructed on discharge instructions, follow up and referral plans. medication usage, Demonstrated understanding of instructions, follow-up care, medications, Prescriptions given X 3, 04:34 Patient left the ED. ha1 Signatures: Nicole Gibbs RN RN kd3 Vivian Simmons RN RN vc1 Lilian An RN RN ha1 Parth Campuzano MD MD sp4 Michelle Villarreal 2
[2025-09-04 05:09] VITALS: TEMP 97.9
[2025-09-04 05:12] VITALS: O2SAT 95
[2025-09-04 05:14] VITALS: BP 143/86
== END 2025-09-04 04:34 | disposition home or self-care (01) ==
LOC: ER 01:25
DX: L24.7 Irritant contact dermatitis due to plants, except food (principal); L50.0 Allergic urticaria
CPT/HCPCS: 96361; 96375; 96374; 99284; J1200; J2919; J7030